=== PATIENT | male | born 2000 | race Caucasian/White ===

== ENCOUNTER 2021-05-20 06:44 | Emergency (ER) | payer OTHER ==
[2021-05-20] MEDS ORDERED: AUGMENTIN 875-1 EACH PO (07:21)
== END 2021-05-20 07:28 | disposition home or self-care (01) ==
LOC: FER 06:44
DX: S61.451A Open bite of right hand, initial encounter (principal); I10 Essential (primary) hypertension; F17.210 Nicotine dependence, cigarettes, uncomplicated; W55.01XA Bitten by cat, initial encounter; Y92.009 Unspecified place in unspecified non-institutional (private) residence as the place of occurrence of the external cause
CPT/HCPCS: 99283